=== PATIENT | female | born 1990 | race Caucasian/White ===

== ENCOUNTER 2017-07-10 13:06 | Outpatient (CLI) | payer OTHER ==
[2017-07-10 13:53] VITALS: BP 116/71; PULSE 84; RESP 16; TEMP 97
--- NOTE | 2017-08-30 08:21 | P.MSEPDOC ---
Presenting Problems - Arrival Data Date of Arrival on Unit: 07/10/17 Time of Arrival on Unit: 13:12 Mode of Transport: Ambulatory - Complaint OB-Reason for Admission/Chief Complaint: Possible Onset of Labor Medical History - Information : 4 Para: 2 Term: 2 : 0 Abortions: Spontaneous or Elective: 1 Number of Living Children: 2 - Gestational Age Gestational Age by ADIA (wks/days): 38 Weeks and 6 Days Review of Systems - Review of Systems Constitutional: No problems Breast: No problems ENT: No problems Cardiovascular: No problems Respiratory: No problems Gastrointestinal: No problems Genitourinary: No problems Musculoskeletal: No problems Neurological: No problems Skin: No problems Vital Signs - Temperature Temperature: 97.0 F Temperature Source: Tympanic - Pulse Right Brachial Pulse Rate: 84 Pulse Assessment Method: Automatic Cuff - Respirations Respiratory Rate: 16 Oxygen Delivery Method: Room Air - Blood Pressure Right Arm Blood Pressure: 116/71 Blood Pressure Mean: 86 Blood Pressure Source: Automatic Cuff Medical Screen Scoring (Pre) - Cervical Exam Dilation: 4-7 cm = 2 Effacement: More than 50% = 2 Membranes: Intact - Uterine Contractions Frequency: > 5 minutes apart = 1 Duration: > 40 seconds = 2 Intensity: N/A - Maternal Vital Signs Maternal Temperature: N/A Maternal Blood Pressure: N/A Signs of Preeclampsia: N/A Maternal Respirations: N/A - Pain Assessment Pain Location and Character: Abdomen Pain Scale Used: Numeric (1 - 10) Pain Intensity: 7 Pain Management Goal: 2 Pain Description: *Acute Pain Radiation Location: na Pain Frequency: Intermittent Pain Duration: 5 Pain Duration Units: Minutes Pain Behavior: Vocalization Pain Aggravating Factors: None Non-Pharmacological Interventions: Position/Reposition - Assessment Baseline FHR: 145 Heart Rate - NICHD Category: Category I (Normal) = 0 NST: Reactive Position: N/A Station: N/A - Total Score Total Score (Pre): 7 - Level of Risk Level of Risk: Medium (6-9) Physician Notification (Pre) - Physician Notified Physician Notified Date: 07/10/17 Physician Notified Time: 13:25 Physician/Practitioner Notifed:: Dr. Barnes Spoke With: Dr. Barnes New Order Received: Yes - Notification Comment Comment: Orders to d/c home and f/up in the morning with induction of labor if no cervical change made. Disposition - Disposition OB Disposition: Discharge to home Discharge Date: 07/10/17 Discharge Time: 14:43 I agree with the RN Medical Screening Exam: Yes Risk & Benefit of care provided described in d/c instruction: Yes Diagnosis: FALSE LABOR AT OR AFTER 37 COMPLETED WEEKS OF GESTATION
== END 2017-07-10 14:44 | disposition home or self-care (01) ==
LOC: FBPOP 13:06
PROVIDERS: ATTEND Obstetrics & Gynecology Obstetrics
DX: O47.1 False labor at or after 37 completed weeks of gestation (principal); Z3A.38 38 weeks gestation of pregnancy
CPT/HCPCS: 59025; G0463; 99213

== ENCOUNTER 2017-07-11 05:57 | Inpatient (IN) | payer OTHER ==
[2017-07-11] MEDS ORDERED: LIDOCAINE 1% (PF) 10 MG/ML (30 ML SDV) SQ PRN (06:13)
[2017-07-11] MEDS ORDERED: METHYLERGONOVINE 0.2 MG/ML 1 ML AMP IM PRN (06:13)
[2017-07-11] MEDS ORDERED: TERBUTALINE 1 MG/ML VIAL SQ PRN (06:13)
[2017-07-11] MEDS ORDERED: AMPICILLIN 2,000 MG in SODIUM CHLORIDE 0.9% 100 ML IVPB STA (06:13)
[2017-07-11] MEDS ORDERED: OXYTOCIN 10 UNIT/ML 1 ML VIAL IM PRN (06:13)
[2017-07-11] MEDS ORDERED: CARBOPROST TROMETHAMINE 250 MCG/ML 1 ML AMP IM PRN (06:13)
[2017-07-11 06:24] VITALS: BMI 25.8
[2017-07-11] MEDS: OXYTOCIN 20 UNITS/1000 ML NS 1,000 ML IV SCH ×2 (06:25→19:31)
[2017-07-11] MEDS: LACTATED RINGERS 1,000 ML IV SCH ×4 (06:25→19:31)
[2017-07-11 06:27] LABS: Basophils % (A) 0 %; Eosinophils # (A) 0.1 k/uL (0-0.7); Eosinophils % (A) 1 %; HCT 31.5 % (34.0-46.0); HGB 10.3 gm/dL (11.4-16.0); Hypochromasia Slight; Lymphocytes # (A) 1.3 k/uL (1.0-4.8); Lymphocytes % (A) 14 %; MCH 26.3 pg (25.0-35.0); MCHC 32.8 g/dL (31.0-37.0); MCV 80.2 fL (80.0-100.0); Monocytes # (A) 0.5 k/uL (0-1.0); Monocytes % (A) 6 %; Neutrophils # (A) 7.4 k/uL (1.3-7.7); Neutrophils % (A) 78 %; Platelet Count 172 k/uL (150-450); RBC 3.92 m/uL (3.80-5.40); RDW 15.5 % (11.5-15.5); WBC 9.5 k/uL (3.8-10.6)
[2017-07-11] MEDS ORDERED: fentaNYL (PF) 50 MCG/ML 5 ML AMP ONE (09:06)
[2017-07-11] MEDS ORDERED: BUPIVACAINE (PF) 0.25% 30 ML VIAL ONE (09:06)
[2017-07-11] MEDS ORDERED: SODIUM CHLORIDE 0.9% 100 ML BAG ONE (09:06)
[2017-07-11] MEDS ORDERED: BUPIVACAINE (PF) 0.5% 12.5 ML, fentaNYL (PF) 200 MCG in SODIUM CHLORIDE 0.9% 83.5 ML EPIDURAL ONE (09:21)
[2017-07-11] MEDS: AMPICILLIN 1,000 MG in SODIUM CHLORIDE 0.9% 50 ML IVPB SCH ×5 (10:36→23:12)
--- NOTE | 2017-07-11 11:51 | P.HPOB ---
History of Present Illness H&P Date: 07/11/17 Chief Complaint: IUP 39 weeks, advance cervical dilation this is a 27 yo that presents for induction of labor secondary to advanced cervical dilation. she denies ctx, VB, and noted good FM. care has been uncomplicated up to this point. on blood work she had a blood type of O pos, Rubella immune, RPR NR, HIV neg, Gbs positive. Review of Systems Constitutional: Denies chills, Denies fatigue, Denies fever Ears, nose, mouth and throat: Denies headache Cardiovascular: Reports edema, Denies chest pain Respiratory: Denies cough, Denies dyspnea Gastrointestinal: Denies constipation, Denies diarrhea Genitourinary: Reports Past Medical History Past Medical History: No Reported History History of Any Multi-Drug Resistant Organisms: None Reported Past Surgical History: Hernia Repair Additional Past Surgical History / Comment(s): Dilation and curettage Past Anesthesia/Blood Transfusion Reactions: No Reported Reaction Past Psychological History: No Psychological Hx Reported Smoking Status: Never smoker Past Alcohol Use History: None Reported Past Drug Use History: None Reported - Past Family History Mother Family Medical History: Hypertension Medications and Allergies Home Medications Medication Instructions Recorded Confirmed Type Ekm-Wvby-Rebty Acid 1 cap PO DAILY 02/05/17 07/11/17 History [-U Capsule (formulary)] Allergies Allergy/AdvReac Type Severity Reaction Status Date / Time morphine AdvReac Unknown Itching Verified 07/11/17 06:10 Exam Osteopathic Statement: *. No significant issues noted on an osteopathic structural exam other than those noted in the History and Physical/Consult. - Vital Signs Vital signs: Vital Signs Temp Pulse Resp 07/11/17 06:09 97.6 F 77 16 Intake and Output 07/10/17 07/11/17 07/11/17 22:59 06:59 14:59 Other: Weight 66.224 kg - OBG Physical Exam Cervix: 5/80/-2 AROM clear fluid obtained without difficulty Results Result Diagrams: 07/11/17 06:15 Abnormal Lab Results - Last 24 Hours (Table) 07/11/17 Range/Units 06:15 Hgb 10.3 L (11.4-16.0) gm/dL Hct 31.5 L (34.0-46.0) % Assessment and Plan (1) Term Current Visit: Yes Status: Acute Code(s): Z34.80 - ENCOUNTER FOR SUPRVSN OF NORMAL , UNSP TRIMESTER SNOMED Code(s): 05711890 Plan: will admit for pitocin induction of labor, she is requesting an epidural for pain control. Time with Patient: Less than 30
[2017-07-11] MEDS ORDERED: ACETAMINOPHEN TAB 325 MG TAB PO PRN (11:56)
[2017-07-11] MEDS ORDERED: LANOLIN CREAM 5 GM TUBE TOPICAL PRN (11:56)
[2017-07-11] MEDS ORDERED: BENZOCAINE/MENTHOL SPRAY 1 GM/SPRAY AEROSOL TOPICAL PRN (11:56)
[2017-07-11] MEDS ORDERED: WITCH HAZEL 1 EACH MED..PAD TOPICAL PRN (11:56)
[2017-07-11] MEDS ORDERED: diphenhydrAMINE 25 MG CAP PO PRN (11:56)
[2017-07-11] MEDS ORDERED: SIMETHICONE 80 MG CHEWABLE PO PRN (11:56)
[2017-07-11] MEDS ORDERED: HYDROCORTISONE 2.5% RECTAL CREAM 30 GM TUBE RECTAL PRN (11:56)
[2017-07-11] MEDS ORDERED: diphenhydrAMINE 50 MG/ML 1 ML VIAL IVP PRN ×2 (11:56)
[2017-07-11] MEDS ORDERED: diphenhydrAMINE 50 MG CAP PO PRN (11:56)
[2017-07-11] MEDS ORDERED: ZOLPIDEM 5 MG TAB PO PRN (11:56)
--- NOTE | 2017-07-11 11:56 | P.PROBDLV ---
Vaginal Delivery Note - . Vaginal Delivery Note: This is a very pleasant 27-year-old 4 para 2011 that presented to labor and delivery this morning for elective induction of labor labor secondary to advanced cervical dilation. Patient was started on Pitocin induction of labor, and antibiotics were started secondary to group beta strep being positive. She progressed to 5 cms, and amniotomy was performed yielding clear fluid. She was treated with antibiotics with 2 doses during this labor course. She progressed to complete and had a normal spent taste vaginal delivery of a viable female with a weight of 84 at 1139. Apgars of 9 and 10 at one and 5 minutes respectively. loose body nuchal cord is delivered through. Afterwards the inspection of the patient's vaginal vault revealed no lacerations. The placenta was delivered intact spontaneously with 3VC noted . Patient and infant tolerated delivery well and are resting comfortably.
[2017-07-11] MEDS ORDERED: OXYTOCIN 20 UNITS/1000 ML NS 1,000 ML IV SCH (12:00)
[2017-07-11] MEDS: IBUPROFEN 600 MG TAB PO PRN ×2 (12:22→23:04)
[2017-07-11] MEDS: SENNOSIDES-DOCUSATE SODIUM 1 EACH TAB PO SCH (19:30)
[2017-07-11 20:02] VITALS: RESP 18
[2017-07-12] MEDS: AMPICILLIN 1,000 MG in SODIUM CHLORIDE 0.9% 50 ML IVPB SCH (02:41)
[2017-07-12] MEDS: LACTATED RINGERS 1,000 ML IV SCH (02:41)
[2017-07-12 08:21] VITALS: BP 86/52; PULSE 69; TEMP 98
[2017-07-12] MEDS ORDERED: PRENATAL VIT-IRON-FOLIC ACID 1 EACH CAP PO SCH (09:00)
--- NOTE | 2017-07-12 10:36 | P.DS ---
Providers Date of admission: 07/11/17 05:57 Expected date of discharge: 07/12/17 Attending physician: Camryn Barnes Primary care physician: Stated None - Discharge Diagnosis(es) (1) Term Current Visit: Yes Status: Acute (2) Status post vaginal delivery Current Visit: Yes Status: Acute (3) Positive GBS test Current Visit: Yes Status: Acute Hospital Course: This is a pleasant 27-year-old 4 para 2011 at 39-0/7 weeks that presented for elective induction of labor secondary to advanced cervical dilation. Patient was admitted to labor and delivery started on Pitocin induction of labor, Patient did receive an epidural during labor. She had a of a viable female infant at 1139 weight of 8 lbs. 4 oz. with Apgars of 9 and 10 at one and 5 minutes respectively. " rosalee" Patient's post course has been uneventful. She is ambulating and voiding without difficulty she is tolerating a regular diet without nausea or vomiting. She states her lochia is moderate and she is currently bottle feeding. She denies any concerns and wishes to be discharged at 24 hours. Patient Condition at Discharge: Good Plan - Discharge Summary New Discharge Prescriptions: No Action Jnx-Hmwu-Pquuc Acid [-U Capsule (formulary)] 1 cap PO DAILY Discharge Medication List Qbs-Lfxt-Bjrcc Acid [-U Capsule (formulary)] 1 cap PO DAILY [History] Follow up Appointment(s)/Referral(s): Camryn Barnes DO [Doctor of Osteopathic Medicine] - 4 Weeks Patient Instructions/Handouts: Vaginal Delivery (DC)
[2017-07-12] MEDS: SENNOSIDES-DOCUSATE SODIUM 1 EACH TAB PO SCH (12:44)
== END 2017-07-12 13:29 | disposition home or self-care (01) | DRG 775 ==
LOC: 4FBP 05:57
PROVIDERS: ADMIT Obstetrics & Gynecology Obstetrics; ATTEND Obstetrics & Gynecology Obstetrics
PROC: 10E0XZZ Delivery of Products of Conception, External Approach (ICD-10-PCS; principal; 2017-07-11)
PROC: 3E033VJ Introduction of Other Hormone into Peripheral Vein, Percutaneous Approach (ICD-10-PCS; 2017-07-11)
PROC: 10907ZC Drainage of Amniotic Fluid, Therapeutic from Products of Conception, Via Natural or Artificial Opening (ICD-10-PCS; 2017-07-11)
PROC: 00HU33Z Insertion of Infusion Device into Spinal Canal, Percutaneous Approach (ICD-10-PCS; 2017-07-11)
PROC: 3E0R3NZ Introduction of Analgesics, Hypnotics, Sedatives into Spinal Canal, Percutaneous Approach (ICD-10-PCS; 2017-07-11)
DX: O99.824 Streptococcus B carrier state complicating childbirth (principal); O69.81X0 Labor and delivery complicated by cord around neck, without compression, not applicable or unspecified; Z37.0 Single live birth; Z3A.39 39 weeks gestation of pregnancy; Z87.19 Personal history of other diseases of the digestive system; Z82.49 Family history of ischemic heart disease and other diseases of the circulatory system; Z88.6 Allergy status to analgesic agent
CPT/HCPCS: 85025; 88307

== ENCOUNTER 2018-07-21 16:17 | Outpatient (CLI) | payer OTHER ==
[2018-07-21 16:37] VITALS: BP 110/64; PULSE 87; RESP 18; TEMP 97.5
--- NOTE | 2018-08-02 12:38 | P.MSEPDOC ---
Presenting Problems - Arrival Data Date of Arrival on Unit: 07/21/18 Time of Arrival on Unit: 16:15 Mode of Transport: Ambulatory - Complaint OB-Reason for Admission/Chief Complaint: Rule Out SROM Medical History - Information : 5 Para: 3 Term: 3 : 0 Abortions: Spontaneous or Elective: 1 Number of Living Children: 3 - Gestational Age Gestational Age by ADIA (wks/days): 35 Weeks and 4 Days Review of Systems - Review of Systems Constitutional: No problems Breast: No problems ENT: No problems Cardiovascular: No problems Respiratory: No problems Gastrointestinal: Constipation Genitourinary: Urgency, Increased frequency Musculoskeletal: No problems Neurological: No problems Skin: No problems Vital Signs - Temperature Temperature: 97.5 F Temperature Source: Oral - Pulse Pulse Oximetery Pulse Rate: 87 Pulse Assessment Method: Automatic Cuff - Respirations Respiratory Rate: 18 O2 Sat by Pulse Oximetry: 97 - Blood Pressure Right Arm Sitting Blood Pressure: 110/64 Blood Pressure Mean: 79 Blood Pressure Source: Automatic Cuff Medical Screen Scoring (Pre) - Uterine Contractions Frequency: N/A Duration: N/A Intensity: N/A - Maternal Vital Signs Maternal Temperature: N/A Maternal Blood Pressure: N/A Signs of Preeclampsia: N/A Maternal Respirations: N/A - Maternal Trauma Maternal Trauma: N/A - Assessment - Baby A Baseline FHR: 140 Heart Rate - NICHD Category: Category I (Normal) = 0 NST: Reactive Position: N/A Station: N/A - Total Score - Baby A Total Score - Baby A: 0 - Level of Risk - Baby A Level of Risk - Baby A: Low (0-5) - Pain Assessment Pain Scale Used: Numeric (1 - 10) Pain Intensity: 0 Medical Screen Scoring (Post) - Post Treatment Level of Risk Post Treatment Level of Risk - Baby A: Low (0-5) Physician Notification (Post) - Physician Notified Physician Notified Date: 07/21/18 Physician Notified Time: 17:20 Physician/Practitioner Notified:: Dr Sahra Winston Order Received: Yes Disposition - Disposition OB Disposition: Discharge to home, Written follow up instructions reviewed Discharge Date: 07/21/18 Discharge Time: 17:39 I agree with the RN Medical Screening Exam: Yes Risk & Benefit of care provided described in d/c instruction: Yes Diagnosis: FALSE LABOR BEFORE 37 COMPLETED WEEKS OF GEST, THIRD TRI
== END 2018-07-21 17:39 | disposition home or self-care (01) ==
LOC: FBPOP 16:17
PROVIDERS: ATTEND Obstetrics & Gynecology Obstetrics
DX: O47.03 False labor before 37 completed weeks of gestation, third trimester (principal); Z3A.35 35 weeks gestation of pregnancy
CPT/HCPCS: 59025; 84112; G0463; 99213

== ENCOUNTER 2018-08-20 09:57 | Inpatient (IN) | payer OTHER ==
[2018-08-19 12:55] VITALS: BMI 26.5
[2018-08-20 10:42] LABS: Glucose,Whole Blood 71 mg/dL (75-99)
[2018-08-20] MEDS ORDERED: ceFAZolin IN SWFI 2 GM/20 ML SYRINGE IVP ONE (11:01)
[2018-08-20] MEDS ORDERED: CITRIC ACID-SODIUM CITRATE 15 ML CUP PO ONE (11:01)
[2018-08-20] MEDS ORDERED: LACTATED RINGERS 1,000 ML IV ONE (11:01)
[2018-08-20] MEDS ORDERED: LACTATED RINGERS 1,000 ML IV SCH ×2 (11:15→13:00)
[2018-08-20 11:42] LABS: Anisocytosis Slight; Basophils % (A) 0 %; Eosinophils % (A) 0 %; Hypochromasia Slight; Lymphocytes # (A) 1.1 k/uL (1.0-4.8); Lymphocytes % (A) 15 %; MCH 24.5 pg (25.0-35.0); MCHC 31.2 g/dL (31.0-37.0); MCV 78.6 fL (80.0-100.0); Mean Platelet Volume 8.5; Microcytosis Slight; Monocytes # (A) 0.4 k/uL (0-1.0); Monocytes % (A) 5 %; Neutrophils # (A) 5.9 k/uL (1.3-7.7); Neutrophils % (A) 78 %; Platelet Count 185 k/uL (150-450); RBC 4.07 m/uL (3.80-5.40); RDW 16.3 % (11.5-15.5); WBC 7.6 k/uL (3.8-10.6)
[2018-08-20] MEDS ORDERED: ePHEDrine SULFATE/0.9% NACL/PF 50 MG/5 ML SYRINGE IV ONE (12:04)
[2018-08-20] MEDS ORDERED: MORPHINE SULFATE (PF) 0.3 MG/0.3 ML SYR ONE (12:04)
[2018-08-20] MEDS ORDERED: OXYTOCIN 10 UNIT/ML 1 ML VIAL ONE (12:04)
[2018-08-20] MEDS ORDERED: ONDANSETRON 4 MG/2 ML VIAL ONE (12:04)
[2018-08-20] MEDS ORDERED: HYDROmorphone (PF) 1 MG/ML ONE (12:04)
[2018-08-20] MEDS ORDERED: diphenhydrAMINE 50 MG/ML 1 ML VIAL IVP PRN ×2 (12:55)
[2018-08-20] MEDS ORDERED: IBUPROFEN 600 MG TAB PO PRN (12:55)
[2018-08-20] MEDS ORDERED: HYDROcodone/APAP 5-325MG 1 EACH TAB PO PRN (12:55)
[2018-08-20] MEDS ORDERED: ACETAMINOPHEN TAB 325 MG TAB PO PRN (12:55)
[2018-08-20] MEDS ORDERED: ACETAMINOPHEN IV (For NPO) 1,000 MG in EMPTY BAG 1 BAG IVPB ONE (12:55)
[2018-08-20] MEDS ORDERED: diphenhydrAMINE 50 MG CAP PO PRN (12:55)
[2018-08-20] MEDS ORDERED: NALOXONE 0.4 MG/ML 1 ML VIAL IV PRN (12:55)
[2018-08-20] MEDS ORDERED: ZOLPIDEM 5 MG TAB PO PRN (12:55)
[2018-08-20] MEDS ORDERED: diphenhydrAMINE 25 MG CAP PO PRN (12:55)
[2018-08-20] MEDS ORDERED: METOCLOPRAMIDE 5 MG/ML 2 ML VIAL IVP PRN (12:55)
--- NOTE | 2018-08-20 12:55 | P.HPOB ---
History of Present Illness H&P Date: 08/20/18 Chief Complaint: IUP at 39 and 6/sevenths weeks, history of tailbone fracture, family status This is a pleasant 28-year-old 5 para 3013 at 39-6/7 weeks that presents to labor and delivery for primary with tubal ligation. Since the delivery of her last child she fell off a horse and broke her tailbone. Patient elected primary secondary to this. In addition she is done with childbearing and wishes tubal ligation. Patient has been receiving routine care with myself and has been essentially uneventful despite the diagnosis of gestational diabetes. Patient's blood sugars have been inconsistent and overall poorly controlled. Today on admission she notes good movement states she has had an occasional contraction denies vaginal bleeding or loss of fluid at this time. On bloodwork patient had a blood type of O+, rubella immune, hepatitis B surface antigen negative, HIV negative, RPR nonreactive, GBS negative. Review of Systems Constitutional: Denies chills, Denies fatigue, Denies fever Ears, nose, mouth and throat: Denies headache Cardiovascular: Reports edema, Reports leg edema Respiratory: Denies dyspnea Gastrointestinal: Denies nausea, Denies vomiting Genitourinary: Reports Past Medical History Past Medical History: No Reported History Additional Past Medical History / Comment(s): gestational diabetic w/this History of Any Multi-Drug Resistant Organisms: None Reported Past Surgical History: Hernia Repair Additional Past Surgical History / Comment(s): Dilation and curettage Past Anesthesia/Blood Transfusion Reactions: No Reported Reaction Past Psychological History: No Psychological Hx Reported Smoking Status: Never smoker Past Alcohol Use History: None Reported Past Drug Use History: None Reported - Past Family History Mother Family Medical History: Hypertension Medications and Allergies Home Medications Medication Instructions Recorded Confirmed Type No Known Home Medications 07/21/18 08/19/18 History Allergies Allergy/AdvReac Type Severity Reaction Status Date / Time morphine AdvReac Unknown Itching Verified 08/19/18 12:32 Exam Osteopathic Statement: *. No significant issues noted on an osteopathic structural exam other than those noted in the History and Physical/Consult. Vital Signs Temp Pulse Resp BP 08/20/18 10:43 99.1 F 83 16 116/78 Intake and Output 08/19/18 08/20/18 08/20/18 22:59 06:59 14:59 Other: Weight 68.039 kg Targeted physical exam was performed and the state in general this is a well- nourished well-developed female that is anxious appearing, her breathing is noted to be nonlabored, her heart has a regular rate and rhythm, her abdomen is gravid and appropriate for gestational age, cervical exam is deferred as she is here for a primary and not complaining of contractions, heart tones are noted to be category 1 and she is alma irregularly. Results Result Diagrams: 08/20/18 10:20 Abnormal Lab Results - Last 24 Hours (Table) 08/20/18 08/20/18 Range/Units 10:20 10:29 Hgb 10.0 L (11.4-16.0) gm/dL Hct 32.0 L (34.0-46.0) % MCV 78.6 L (80.0-100.0) fL MCH 24.5 L (25.0-35.0) pg RDW 16.3 H (11.5-15.5) % POC Glucose (mg/dL) 71 L (75-99) mg/dL Assessment and Plan (1) GDM (gestational diabetes mellitus), class A1 Current Visit: Yes Status: Acute Code(s): O24.410 - GESTATIONAL DIABETES MELLITUS IN , DIET CONTROLLED SNOMED Code(s): 41046091 (2) Family planning Current Visit: Yes Status: Acute Code(s): Z30.09 - ENCOUNTER FOR OT GENERAL CNSL AND ADVICE ON CONTRACEPTION SNOMED Code(s): 599061860 (3) Term Current Visit: No Status: Acute Code(s): Z34.80 - ENCOUNTER FOR SUPRVSN OF NORMAL , UNSP TRIMESTER SNOMED Code(s): 13043045 Plan: Patient is admitted for planned primary with tubal ligation. Procedures reviewed questions are answered and risks are reviewed. Risks are reviewed including but not limited to infection, bleeding, damage to bladder, bowel, ureteric, injury. All questions are answered once again and patient states understanding and wishes to proceed.
[2018-08-20] MEDS ORDERED: OXYTOCIN 20 UNITS/1000 ML NS 1,000 ML IV SCH (13:00)
--- NOTE | 2018-08-20 13:00 | P.OP ---
Date of Procedure: 08/20/18 Preoperative Diagnosis: IUP at 39 and 6/sevenths weeks, history of fractured tailbone, family status complete Postoperative Diagnosis: Same Procedure(s) Performed: Primary low transverse section with tubal ligation/Filshie clips Anesthesia: spinal Surgeon: Camryn Barnes Marketing Strategy Manager #1: Leah Murguia Estimated Blood Loss (ml): 600 IV fluids (ml): 600 Urine output (ml): 50 Pathology: none sent Condition: stable Disposition: observation Indications for Procedure: History of tailbone fracture, family status complete Operative Findings: Normal uterus tubes and ovaries were appreciated male infant delivered at 1227, weight of 8 lbs. 13 oz., Apgars of 8 and 9 at one and 5 minutes respectively. Description of Procedure: The patient was prepped and draped in the usual fashion after spinal anesthesia was administered by the anesthesia department. A Pfannenstiel incision was made and extended of the abdominal cavity without difficulty. The bladder peritoneum was elevated and incised and reflected distally. A 2 cm incision was made in the transverse plane of the lower uterine segment to enter the uterus at which time clear fluid was noted. The incision was extended in both directions using the bandage scissors. The head was encountered within the field and delivered up and through the incision where the nose and mouth were thoroughly suctioned. Remainder of the infant was delivered onto the surgical field where the cord was doubly clamped, cut, and the infant was passed for resuscitative measures with weight and Apgars as noted above. A segment of cord was then doubly clamped, cut, and set aside should cord gases become necessary. The placenta was delivered manually, intact, and was grossly normal with a grossly normal three-vessel cord. The uterus was exteriorized and the interior cavity of the uterus swept of any remaining placental and membranous fragments with a laparotomy sponge. The margins of the incision were grasped with Allis clamps and the incision closed in 2 layers. First layer was a running locking layer of 0 Vicryl from margin to margin followed by a second layer of imbricating 0 Vicryl from margin to margin. Any small points of bleeding were then made hemostatic with the Bovie. The left fallopian tube was visualized grasped with the Filshie clip applicator and operated according to clinical documentation manager's instruction, this was then repeated on the opposite side. Once hemostasis was achieved, the posterior cul-de-sac was suctioned with a guard and the uterine and ovarian findings are as noted above. The uterus was replaced within the abdominal cavity and the gutters swept of any remaining blood fluid or clot. The incision was again reexamined and hemostasis was noted to be excellent. Any small point of bleeding were made hemostatic with the Bovie. Once hemostasis was achieved the parietal peritoneum was loosely reapproximated. The layer of muscles were examined and made hemostatic with the Bovie. Attention was then turned to the fascia which was closed with 2 running stitches of 0 Vicryl proceeding from the lateral margins to the midpoint. The subcutaneous tissues were irrigated, made hemostatic with the Bovie, and reapproximated. . The skin was reapproximated with 4-0 Vicryl. Estimated blood loss for the case was approximately 600 mL. All sponge instrument and needle counts are correct. There were no complications. The patient tolerated the procedure well and proceeded to the recovery room in stable condition. Both mother and are resting comfortably in recovery.
[2018-08-20] MEDS: ONDANSETRON 4 MG/2 ML VIAL IVP PRN (17:53)
[2018-08-20] MEDS ORDERED: IBUPROFEN IV 800 MG in SODIUM CHLORIDE 0.9% 250 ML IV ONE (19:27)
[2018-08-21] MEDS: ONDANSETRON 4 MG/2 ML VIAL IVP PRN (02:41)
[2018-08-21 07:37] LABS: Anisocytosis Slight; Basophils % (A) 0 %; Eosinophils # (A) 0.1 k/uL (0-0.7); Eosinophils % (A) 1 %; HCT 24.9 % (34.0-46.0); Hypochromasia Moderate; Lymphocytes # (A) 0.8 k/uL (1.0-4.8); Lymphocytes % (A) 10 %; MCH 25.4 pg (25.0-35.0); MCHC 32.5 g/dL (31.0-37.0); MCV 78.2 fL (80.0-100.0); Mean Platelet Volume 8.6; Monocytes # (A) 0.5 k/uL (0-1.0); Monocytes % (A) 6 %; Neutrophils # (A) 6.2 k/uL (1.3-7.7); Neutrophils % (A) 81 %; Platelet Count 127 k/uL (150-450); RBC 3.18 m/uL (3.80-5.40); RDW 16.1 % (11.5-15.5); WBC 7.7 k/uL (3.8-10.6)
[2018-08-21 08:10] LABS: HGB 8.1 gm/dL (11.4-16.0)
--- NOTE | 2018-08-21 08:14 | P.PNOBGPC ---
Subjective - Subjective Principal diagnosis: POD 1 LTCS with TL Interval history: Patient is doing well on this postop day #1 she states she is ambulating and voiding without difficulty, lochia is minimal. She is currently bottle feeding. She states her pain is well-controlled. She is tolerating a regular diet without nausea or vomiting. Patient reports: Reports appetite normal, Reports voiding normally, Reports pain well controlled, Reports ambulating normally [place]: doing well Objective - Vital Signs Latest vital signs: Vital Signs Temp Pulse Resp BP Pulse Ox 08/21/18 04:00 98.3 F 72 16 115/70 08/21/18 00:00 97.9 F 85 16 110/68 08/20/18 20:00 97.8 F 81 16 117/80 08/20/18 16:00 98.1 F 88 16 111/62 08/20/18 15:08 82 16 115/65 100 08/20/18 14:38 85 16 115/64 08/20/18 14:00 92 16 113/55 08/20/18 13:43 79 16 111/55 08/20/18 13:25 79 16 108/68 08/20/18 13:10 81 16 102/64 08/20/18 12:55 97.5 F L 86 16 98/57 08/20/18 10:43 99.1 F 83 16 116/78 Intake and Output 08/20/18 08/21/18 08/21/18 22:59 06:59 14:59 Intake Total 300 Output Total 1450 350 Balance -1450 -50 Intake: Oral 300 Output: Urine 850 350 Estimated Blood Loss 600 - Exam Extremities: Present: normal Abdomen: Present: normal appearance, soft Incision: Present: normal, dry, intact Uterus: Present: normal, firm - Labs Labs: Abnormal Lab Results - Last 24 Hours (Table) 08/20/18 08/20/18 08/21/18 Range/Units 10:20 10:29 06:35 RBC 3.18 L (3.80-5.40) m/uL Hgb 10.0 L 8.1 L D (11.4-16.0) gm/dL Hct 32.0 L 24.9 L (34.0-46.0) % MCV 78.6 L 78.2 L (80.0-100.0) fL MCH 24.5 L (25.0-35.0) pg RDW 16.3 H 16.1 H (11.5-15.5) % Plt Count 127 L (150-450) k/uL Lymphocytes # 0.8 L (1.0-4.8) k/uL POC Glucose (mg/dL) 71 L (75-99) mg/dL Assessment and Plan (1) GDM (gestational diabetes mellitus), class A1 Current Visit: Yes Status: Acute Code(s): O24.410 - GESTATIONAL DIABETES MELLITUS IN , DIET CONTROLLED SNOMED Code(s): 14102699 (2) Family planning Current Visit: Yes Status: Acute Code(s): Z30.09 - ENCOUNTER FOR OTH GENERAL CNSL AND ADVICE ON CONTRACEPTION SNOMED Code(s): 661249933 (3) Term Current Visit: No Status: Acute Code(s): Z34.80 - ENCOUNTER FOR SUPRVSN OF NORMAL , UNSP TRIMESTER SNOMED Code(s): 94038507 (4) S/P section Current Visit: Yes Status: Acute Code(s): Z98.891 - HISTORY OF UTERINE SCAR FROM PREVIOUS SURGERY SNOMED Code(s): 394314814 Plan: Patient is doing well on this postop day #1. We will continue routine postoperative care and anticipate discharge home tomorrow.
--- NOTE | 2018-08-21 09:22 | P.PN ---
Progress Note - Text Progress Note Date: 08/21/18 Pt w/o complaints. Ambulating w/o weakness or paresthesia. Denies headache. Minimal pruritis. Pain controlled. Spinal site clean and dry A/P POD#1 s/p w/ duramorph - doing well
[2018-08-21] MEDS: SENNOSIDES-DOCUSATE SODIUM 1 EACH TAB PO SCH ×2 (11:28→20:24)
[2018-08-21 21:10] VITALS: TEMP 98.1
[2018-08-22 09:01] VITALS: BP 115/75; PULSE 90; RESP 16
[2018-08-22] MEDS: SENNOSIDES-DOCUSATE SODIUM 1 EACH TAB PO SCH (10:08)
--- NOTE | 2018-08-22 10:41 | P.DS ---
Providers Date of admission: 08/20/18 09:57 Expected date of discharge: 08/22/18 Attending physician: Camryn Barnes Primary care physician: Stated None - Discharge Diagnosis(es) (1) GDM (gestational diabetes mellitus), class A1 Current Visit: Yes Status: Acute (2) Family planning Current Visit: Yes Status: Acute (3) Term Current Visit: No Status: Acute (4) S/P section Current Visit: Yes Status: Acute Hospital Course: This is a pleasant 28-year-old 5 para 3013 at 39-6/7 weeks that presents for elective with tubal ligation secondary to history of a fractured tailbone. Patient states she was done with childbearing and wishes tubal ligation at the same time. Patient was admitted on 08/20 for this procedure. Patient did have a history of gestational diabetes and overall is poorly controlled. Patient did have routine care. Patient underwent C- section without difficulty, for further details on the please see the operative report. Patient's postoperative course has been uneventful. On this postop day #2 she is ambulating and voiding without difficulty. She is tolerating a regular diet without nausea or vomiting. She states her pain is well-controlled and has not been taking anything for pain. She does wish discharge home. Patient had a male infant delivered at 1227 weight of 8 lbs. 13 oz. with Apgars of 8 and 9 at one and 5 minutes respectively. Patient Condition at Discharge: Good Plan - Discharge Summary Discharge Rx Participant: No New Discharge Prescriptions: No Action No Known Home Medications Discharge Medication List No Known Home Medications 07/21/18 [History] Follow up Appointment(s)/Referral(s): Camryn Barnes DO [Doctor of Osteopathic Medicine] - 2 Weeks Patient Instructions/Handouts: (DC), (GEN) Discharge Disposition: HOME SELF-CARE
== END 2018-08-22 11:30 | disposition home or self-care (01) | DRG 785 ==
LOC: 4FBP 09:57
PROVIDERS: ADMIT Obstetrics & Gynecology Obstetrics; ATTEND Obstetrics & Gynecology Obstetrics
PROC: 0UL70CZ Occlusion of Bilateral Fallopian Tubes with Extraluminal Device, Open Approach (ICD-10-PCS; 2018-08-20)
PROC: 10D00Z1 Extraction of Products of Conception, Low, Open Approach (ICD-10-PCS; principal; 2018-08-20 12:00)
DX: O24.429 Gestational diabetes mellitus in childbirth, unspecified control (principal); O99.62 Diseases of the digestive system complicating childbirth; K21.9 Gastro-esophageal reflux disease without esophagitis; Z37.0 Single live birth; Z3A.39 39 weeks gestation of pregnancy; Z88.5 Allergy status to narcotic agent; Z30.2 Encounter for sterilization; Z82.49 Family history of ischemic heart disease and other diseases of the circulatory system
CPT/HCPCS: 85025; 86850; 86900; 86901